=== PATIENT | male | born 1950 | race Caucasian/White ===

== ENCOUNTER 2017-01-21 11:12 | Inpatient (IN) ==
[2017-01-16 15:21] LABS: Appearance,Urine CLEAR; Bacteria,Urine 0 /hpf (0); Basophils # (Auto) 0 K/mcL (0.0-0.3); Basophils % (Auto) 0.6 % (0.0-2.0); Bilirubin,Urine NEG (NEG); Color,Urine STRAW; Eosinophils # (Auto) 0.3 K/mcL (0.0-0.7); Eosinophils % (Auto) 4.2 % (0.0-7.0); Glucose,Urine (UA) NEGATIVE (NEG); Granulocytes % (Auto) 49.1 % (38.0-78.0); Leukocyte Esterase,Urine NEG /uL (NEG); Lymphocytes # (Auto) 2.8 K/mcL (1.5-4.8); Lymphocytes % (Auto) 36.6 % (15.5-49.0); Mean Cell Volume 96.7 fL (80.0-100.0); Mean Corpuscular Hemoglobin 32.9 pg (26.0-34.0); Monocytes # (Auto) 0.7 K/mcL (0.1-0.9); Monocytes % (Auto) 9.5 % (1.0-12.0); Nitrate,Urine NEG (NEG); Platelet Count 254 K/mcL (140-440); Protein,Urine NEG (NEG); RBC 4.15 M/mcL (4.50-5.90); Red Cell Distribution Width 13.1 % (11.5-14.5); Specific Gravity,Urine 1.008 (1.000-1.035); Urine Blood 0.03 mg/dL (<0.03); Urine RBC < 1 /hpf (0-1); Urine Squamous Epithelial Cell 0 /hpf (0-4); Urine WBC < 1 /hpf (0-4); Urobilinogen,Urine NEG (NEG)
[2017-01-16 15:55] LABS: Blood Urea Nitrogen 15 mg/dl (8-23)
[~2017-01-21 11:12] MED LIST: CELECOXIB 200 MG CAPSULE PO SCH; PREGABALIN 75 MG CAPSULE PO SCH; ceFAZolin 1 GM VIAL IV SCH; oxyCODONE 10 MG TAB.ER.12H PO SCH
[2017-01-21] MEDS ORDERED: SCOPOLAMINE 1 PATCH PATCH TOPICAL ONE (12:12)
[2017-01-21] MEDS ORDERED: HEPARIN 20,000 UNIT/ML VIAL IR ONE (12:30)
[2017-01-21] MEDS ORDERED: PROPOFOL 200 MG/20 ML VIAL IV ONE (12:35)
[2017-01-21] MEDS ORDERED: MIDAZOLAM 5 MG/5 ML VIAL IV ONE (12:35)
[2017-01-21] MEDS ORDERED: ONDANSETRON 4 MG/2 ML VIAL IV ONE (12:35)
[2017-01-21] MEDS ORDERED: LIDOCAINE HCL/PF 100 MG/5 ML SYRINGE IV ONE (12:35)
[2017-01-21] MEDS ORDERED: DEXAMETHASONE 10 MG/ML VIAL IV ONE (12:35)
[2017-01-21] MEDS ORDERED: TRANEXAMIC ACID 1,000 MG/10 ML VIAL IV ONE (12:35)
[2017-01-21] MEDS ORDERED: HETASTARCH 6% 500 ML BAG IV ONE (12:35)
[2017-01-21] MEDS ORDERED: PHENYLEPHRINE 10 MG/ML VIAL IV ONE (12:35)
[2017-01-21] MEDS ORDERED: BENZOCAINE/MENTHOL 1 LOZENGE PO PRN ×2 (14:15→14:32)
[2017-01-21] MEDS ORDERED: HYDROmorphone 2 MG/ML SYRINGE IV PRN ×2 (14:15→14:32)
[2017-01-21] MEDS ORDERED: MAGNESIUM HYDROXIDE 30 ML ORAL.SUSP PO PRN (14:15)
[2017-01-21] MEDS ORDERED: POLYETHYLENE GLYCOL 3350 17 GM PACKET PO PRN (14:15)
[2017-01-21] MEDS ORDERED: ONDANSETRON 4 MG/2 ML VIAL IV PRN ×2 (14:15→14:32)
[2017-01-21] MEDS ORDERED: TRANEXAMIC ACID 1,000 MG/10 ML VIAL IV SCH (14:15)
[2017-01-21] MEDS ORDERED: FLEETS ADULT ENEMA PR PRN (14:15)
[2017-01-21] MEDS ORDERED: BISACODYL 10 MG SUPP.RECT PR PRN (14:15)
--- NOTE | 2017-01-21 14:15 | Brief Operative Note ---
Date of procedure: 01/21/17 Pre-op diagnosis: R hip DJD Post-op diagnosis: same Procedure: Right total hip arthroplasty Grafts/Implants: Yes (Depuy Trilock 5 HO, 60 mm cup, 36 +1.5 delta head, neutral altrx liner) Anesthesia: spinal, GLMA Findings: severe arthritis Complications: none Surgeon: Agustin Juan Risk Mgr: Rogelio Mendoza Estimated blood loss (cc): 300 Specimens Removed/Pathology: none sent Condition: stable Disposition: PACU
[2017-01-21] MEDS ORDERED: KETOROLAC 15 MG/ML VIAL IV PRN (14:26)
[2017-01-21] MEDS ORDERED: LACTATED RINGERS 250 ML IV PRN (14:32)
[2017-01-21] MEDS ORDERED: ePHEDrine 50 MG/ML AMPUL IV PRN (14:32)
[2017-01-21] MEDS ORDERED: IPRATROPIUM/ALBUTEROL 3 ML AMPUL.NEB NEB PRN (14:32)
[2017-01-21] MEDS ORDERED: METHOCARBAMOL 1,000 MG/10 ML VIAL IV PRN (14:32)
[2017-01-21] MEDS ORDERED: MEPERIDINE 25 MG/ML SYRINGE IV PRN (14:32)
[2017-01-21] MEDS ORDERED: MEPERIDINE 50 MG/ML SYRINGE IM PRN (14:32)
[2017-01-21] MEDS ORDERED: METOCLOPRAMIDE 10 MG/2 ML VIAL IV PRN (14:32)
[2017-01-21] MEDS ORDERED: PROMETHAZINE 25 MG/ML VIAL IM PRN (14:32)
[2017-01-21] MEDS ORDERED: PROMETHAZINE 25 MG/ML VIAL IV PRN (14:32)
[2017-01-21] MEDS ORDERED: FLUMAZENIL 0.1 MG/ML ML IV PRN (14:32)
[2017-01-21] MEDS ORDERED: diphenhydrAMINE 50 MG/ML VIAL IV PRN (14:32)
[2017-01-21] MEDS ORDERED: NALOXONE HCL 0.4 MG/ML VIAL IV PRN (14:32)
[2017-01-21] MEDS ORDERED: LACTATED RINGERS 1,000 ML IV SCH (14:45)
--- NOTE | 2017-01-21 15:24 | XRay Report ---
HISTORY: Reason for Exam:post-op arthroplasty FINDINGS: There is a well-positioned right total hip prosthesis. No fracture is present and there are no abnormal soft tissue calcifications. Disc space narrowing is present at L4-5 and L5-S1. IMPRESSION: Well-positioned right hip prosthesis Interpreted and Authenticated by: Neptali Maya 01/21/17
[2017-01-21] MEDS: fentaNYL 100 MCG/2 ML VIAL IV PRN ×2 (15:26→15:30)
--- NOTE | 2017-01-21 15:42 | Operative Note ---
DATE OF OPERATION: 01/21/2017 PREOPERATIVE DIAGNOSIS: Right hip degenerative joint disease. POSTOPERATIVE DIAGNOSIS: Right hip degenerative joint disease. PROCEDURE PERFORMED: Right total hip arthroplasty through direct anterior approach using a DePuy Tri-Lock size 5 high offset femoral stem, with a +1.5, 36 mm delta ceramic head ball and a 60 mm 3-hole [place] cup with a neutral AltrX liner. SURGEON: Agustin Juan MD. ACUTE CARE NURSING ASSISTANT: Sherman Mendoza PA-C. ANESTHESIA: Spinal plus general. DRAINS: None. SPECIMENS: Femoral head and reamings, which were discarded. BLOOD LOSS: 300 Ml. COMPLICATIONS: None. POSTOPERATIVE CONDITION: Stable. 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 FINDINGS AT SURGERY: There was a very degenerated and hypertrophic labrum and hip arthrosis. Post implantation showed satisfactory component position and sizing with only minimal leg lengthening. PROCEDURE IN DETAIL: The patient had been seen preoperatively. Informed consent had been obtained after discussion of risks and benefits of surgery. Risks including, but not limited to, bleeding, possibly requiring transfusion; infection, possibly requiring implant removal and prolonged IV antibiotics; injury to nerves, blood vessels, and other surrounding structures; anesthetic risks; incomplete or no resolution of symptoms; leg length discrepancy; dislocation; fracture; DVT and pulmonary embolus risks; the possibility of needing further surgery; possible numbness around the incision over the leg. He understood these risks and wished to proceed. Correct operative site was marked and then the patient was given a spinal anesthesia and taken to the operating room and LMA general given. He was carefully transferred to the fracture table and the right hip and groin were carefully prepped and draped in normal sterile fashion. A time-out was performed verifying patient name, operative site, and plan. Standard anterior approach incision was made with a scalpel through skin and subcutaneous tissue and then hemostasis was obtained with Bovie cautery. We continued sharp dissection down to the tensor fascia, and then blunt dissection was used to undermine circumferentially and Irrisept was irrigated. We then placed a ring retractor and tensor fascia was incised in line with the muscle fibers. We then dissected medial to the muscle belly bluntly and then cobra retractors were placed on the superior and inferior neck. Circumflex vessels were coagulated and cut and then anterior capsulectomy was performed with capsule releases out to the trochanters. We then placed a corkscrew in the femoral head and an osteotome used under fluoro to identify our approximate neck cut trajectory and then an oscillating tip saw was used to make our neck osteotomy. Femoral head was levered out and the acetabulum was exposed. Labrum was excised circumferentially. This was quite hypertrophic. We removed soft tissue from the floor and then began reaming directly medializing. We increased reamer size and we were unable to get significant rim ream until we got to a 59 reamer. I did medialize this a little more to try and get some better cup coverage. We used a trial component, did not get press fit, so we went ahead and opened a 60 mm 3-hole cup. We filled the wound with Irrisept. After a minute we copiously pulse lavaged with saline. We then impacted the cup at approximately 40 degrees of inclination and 25 degrees of anteversion. We did get some press fit, but I went ahead and placed a screw in the posterior superior quadrant. This was a 35 mm screw. It got excellent cortical purchase, so we went ahead and placed a center hole cover and then a neutral AltrX liner was carefully aligned and impacted. We then removed traction from the leg and released capsule around the posterior neck. The leg was then extended, and adducted. We then released capsule out to the greater trochanter, and once we had adequate exposure box osteotome was used to gain canal entry, followed by awl to identify canal trajectory. A rongeur and rasp were used to lateralize and then began sequentially broaching up to a size 5, which seated approximately our neck cut. We calcar planed a little off the posterior lateral corner and then a high offset neck with a +1.5 head ball trial was placed based off the preoperative templating. The hip was reduced without excessive tension. Fluoro was brought in and AP pelvis checked to verify neutral rotation and AP of the nonoperative and operative hips were taken and overlaid. Components appeared to be appropriately sized, and there was minimal leg lengthening so we redislocated and removed the trial components. The canal was irrigated with Irrisept. After a minute we copiously pulse lavaged with saline. The stem was then impacted. It did seat about a millimeter or two more proud than the trial. We went ahead and opened a +1.5, 36 mm delta ceramic head ball. The stem was carefully cleaned and dried and then the head ball briskly impacted. We then reduced the hip. This did have a little bit more tension. Final fluoro images were taken which showed good component position. These were saved and printed. We irrigated Irrisept again and after minute copiously pulse lavaged with saline. We then closed the tensor fascia with two #1 Vicryl stitches, one running proximal and one running distal. A final Irrisept irrigation and then a minute later saline pulse lavage, and then 2-0 Monocryl used for subcutaneous and lashonda for skin. Xeroform and sterile dressing were applied. The patient was then awakened, extubated, and transferred to recovery in satisfactory condition. MICHELLE:flor Job ID: [id number] Doc ID: [id number] Agustin Juan MD
[2017-01-21] MEDS ORDERED: PANTOPRAZOLE 40 MG TABLET PO PRN (18:00)
[2017-01-21] MEDS: ATORVASTATIN 20 MG TABLET PO SCH (20:38)
[2017-01-21] MEDS: DOCUSATE SODIUM 100 MG CAPSULE PO SCH (20:38)
[2017-01-21] MEDS: SENNOSIDES 1 TABLET PO SCH (20:38)
[2017-01-21] MEDS: ASPIRIN 325 MG ENTERIC COATED TABLET PO SCH (20:38)
[2017-01-21] MEDS: 0.9 % SODIUM CHLORIDE 10 ML SYRINGE IV SCH (20:42)
[2017-01-21] MEDS: HYDROcodone/APAP 10/325MG TABLET PO PRN (21:43)
[2017-01-21] MEDS: ceFAZolin 1 GM VIAL IV SCH (22:25)
[2017-01-21] MEDS: 0.9 % SODIUM CHLORIDE 1,000 ML IV SCH ×2 (22:26)
[2017-01-22] MEDS: HYDROcodone/APAP 10/325MG TABLET PO PRN ×5 (03:20→20:12)
[2017-01-22] MEDS: ceFAZolin 1 GM VIAL IV SCH (05:20)
[2017-01-22] MEDS: 0.9 % SODIUM CHLORIDE 10 ML SYRINGE IV SCH ×3 (06:35→22:31)
[2017-01-22] MEDS: 0.9 % SODIUM CHLORIDE 1,000 ML IV SCH ×2 (06:35→13:29)
--- NOTE | 2017-01-22 07:09 | Discharge Summary ---
Providers - Providers Patient information: Note initiated : 01/22/17 at 7:06 am Service Date, if different from initiated Date: [] Patient: Jerel Prince 66 y/o M admitted on 01/21/17 for Right Total Hip Arthroplasty. Chief Complaint: mild ache Discharge date: 01/22/17 Hospitalization Hospital course: Pt was admitted on 01/21/17 for a R total hip arthroplasty. He spent one night on the floor for IV pain meds, IV abx, and PT. Discharged on post-op day 1. Discharge diagnosis: R hip osetoarthrosis Exam - Exam Clean and dry: Yes Weight bearing status: as tolerated Ortho Discharge - ILENE - Patient Instructions Diet: Regular Diet Activity: activity as tolerated Total Hip Protocol: Follow activity instructions as provided by Physical Therapy. Dressing Care: May shower in 2 days Patient Education: Total Hip Replacement (DC) Additional Instructions: [facility] [phone] APPOINTMENT: FridayJanuary 24 @11: 00 am Discharge Instructions: Do the exercises at home that physical therapy gave you. Take your prescription, photo ID, insurance cards, and current medication list with you to your first physical therapy appointment. Take your prescription to [facility] any medication or equipment (such as walker, crutches, toilet riser or C.P.M.) Wear comfortable clothing for your physical therapy. Weight bearing as tolerated. You have the Aquacel Ag dressing, leave in place for 7 days then remove. If dressing becomes soiled (turns black), remove and use gauze 4x4 dressing and silvasorb ointment and change daily. Keep incision clean and dry. You may start showering on post op day #2. To avoid constipation while taking any narcotic pain medication, take an over the counter stool softener/laxative. Use ice packs as directed, on for 20 minutes at a time throughout the day. This and elevation will help with pain and swelling. Call your physician for fevers above 100.5 or pain not controlled by medication. Your prescriptions are with your discharge information. Some medications were electronically transmitted to your pharmacy of choice. - Follow Up Plan Follow Up Appointments: Agustin Juan MD [Physician] - 02/06/17 11:20 am Disposition: Home, Self-Care Prognosis: Good Rehab Potential: Good Overall status at discharge: patient is progressing back to baseline - Orders For Discharge Prescriptions: Aspirin [Ecotrin] 325 mg PO BID #60 HYDROcodone/APAP 10/325MG [[place] 10/325Mg] 1 - 2 tab PO Q4HP PRN #90 tablet PRN Reason: Pain Pending Studies Resuscitation Status Full Code Diet Regular Diet Start FriJan 21 Dinner Acetaminophen/Hydrocodone Bitart ([place] 10/325mg) 0 tab PO Q4HP PRN PRN Reason: Pain Last Admin: 01/22/17 03:20 Dose: 1 tab Admin: 01/21/17 21:43 Dose: 1 tab Aspirin (Ecotrin) 325 mg PO BID [facility] Last Admin: 01/21/17 20:38 Dose: 325 mg Atorvastatin Calcium (Lipitor) 10 mg PO HS [facility] Last Admin: 01/21/17 20:38 Dose: 10 mg Docusate Sodium (Colace) 100 mg PO BID [facility] Last Admin: 01/21/17 20:38 Dose: 100 mg Hydromorphone HCl (Dilaudid) 0 mg IV Q2HP PRN PRN Reason: Pain Last Admin: 01/21/17 21:41 Dose: 1 mg Sodium Chloride (Sodium Chloride 0.9%) 1,000 mls @ 125 mls/hr IV .Q8H [facility] Last Admin: 01/22/17 06:35 Dose: Admin: 01/21/17 22:26 Dose: 125 mls/hr Admin: 01/21/17 22:26 Dose: Not Given Ketorolac Tromethamine (Toradol) 15 mg IV Q6HP PRN PRN Reason: Pain Stop: 01/23/17 14:25 Last Admin: 01/21/17 16:51 Dose: 15 mg Senna (Senokot) 2 tab PO [facility] Last Admin: 01/21/17 20:38 Dose: 2 tab Sodium Chloride (Saline Flush) 10 ml IV Q8 [facility] Last Admin: 01/22/17 06:35 Dose: Not Given Admin: 01/21/17 20:42 Dose: 10 ml Shift Summary 01/22/17 03:43 Shift Summary by Vanna Fuchs Patient A&O, pleasant with all cares. Pain controlled with 1Norco 10 x2, and 1mg Dilaudid x1. 20G IV to right hand SL. Pt has hx of urinary retention, was straight cathed x2. last PVR between 150-200, this is improving. AV boots on. Ambulating to BR with SBA and FWW. Did get dizzy when standing up. VSS on RA. Will update at bedside. Initialized on 01/22/17 03:43 - END OF NOTE
[2017-01-22] MEDS: ASPIRIN 325 MG ENTERIC COATED TABLET PO SCH ×2 (07:56→20:11)
[2017-01-22] MEDS: DOCUSATE SODIUM 100 MG CAPSULE PO SCH ×2 (07:56→20:11)
[2017-01-22] MEDS: NORTRIPTYLINE 25 MG CAPSULE PO SCH (07:57)
[2017-01-22] MEDS: ATORVASTATIN 20 MG TABLET PO SCH (20:11)
[2017-01-22] MEDS: SENNOSIDES 1 TABLET PO SCH (20:11)
[2017-01-23] MEDS: 0.9 % SODIUM CHLORIDE 1,000 ML IV SCH (00:31)
[2017-01-23] MEDS: HYDROcodone/APAP 10/325MG TABLET PO PRN ×3 (00:35→10:25)
[2017-01-23] MEDS: 0.9 % SODIUM CHLORIDE 10 ML SYRINGE IV SCH (04:36)
[2017-01-23] MEDS: NORTRIPTYLINE 25 MG CAPSULE PO SCH (08:48)
[2017-01-23] MEDS: ASPIRIN 325 MG ENTERIC COATED TABLET PO SCH (08:48)
[2017-01-23] MEDS: DOCUSATE SODIUM 100 MG CAPSULE PO SCH (08:48)
== END 2017-01-23 11:10 | disposition home or self-care (01) | DRG 470 ==
LOC: MEDSUR 11:12
PROVIDERS: ADMIT Orthopaedic Surgery; ATTEND Orthopaedic Surgery